=== PATIENT | female | born 1995 | race Caucasian/White ===

== ENCOUNTER 2019-05-02 03:36 | Emergency (ER) | payer SELFPAY ==
[2019-05-02] MEDS ORDERED: Lidocaine 2% PF 5 ML VIAL ONE ×2 (03:51→03:52)
[2019-05-02] MEDS ORDERED: Ibuprofen 200 MG TAB ONE (04:53)
[2019-05-02] MEDS ORDERED: Acetaminophen/Codeine 30-300mg Tablet ONE (04:53)
[2019-05-02] MEDS ORDERED: Cephalexin 500 MG CAP ONE (04:53)
--- NOTE | 2019-05-02 11:10 | RAD ---
LEFT HAND 3 VIEWS: DATE: 05/02/2019. FINDINGS: Slightly displaced fractures are seen through the terminal johnson of the 3rd and 4th digits. The harry chilango of the hand appears intact. IMPRESSION: Displaced fractures of the terminal johnson of the 3rd and 4th distal phalanges. POS: HOME
== END 2019-05-02 05:10 | disposition home or self-care (01) ==
LOC: BURERS 03:36
DX: S62.633A Displaced fracture of distal phalanx of left middle finger, initial encounter for closed fracture (principal); S62.635A Displaced fracture of distal phalanx of left ring finger, initial encounter for closed fracture; F17.210 Nicotine dependence, cigarettes, uncomplicated; W20.8XXA Other cause of strike by thrown, projected or falling object, initial encounter
CPT/HCPCS: 11720; 11750; 12001; J2001; Q4049